=== PATIENT | male | born 1935 | race Caucasian/White ===

== ENCOUNTER 2023-11-21 04:31 | Observation (INO) ==
[2023-11-21 05:14] LABS: ABS Basophils 0.1 10^3/uL (0.0-0.1); ABS Lymphocytes 0.7 10^3/uL (1.0-4.8); ABS Monocytes 1.1 10^3/uL (0.0-1.1); ABS Neutrophils 9.9 10^3/uL (1.5-7.6); ABS Nucleated RBC 0.01 10^3/ul; Eosinophil % 0.2 %; Hematocrit 22.5 % (38-53); Hemoglobin 7.3 g/dL (13.2-16.3); Lymphocyte % 5.9 %; Mean Corpuscular Hemoglobin 33.1 pg (27-33); Mean Corpuscular Hgb Conc 32.6 g/dL (31-36); Mean Corpuscular Volume 101.6 fL (80-97); Mean Platelet Volume 7.3 fL (7.5-11.2); Platelet Count 201 10^3/uL (150-450); Red Blood Count 2.22 10^6/uL (4.06-5.63); Red Cell Distribution Width 17.4 % (12-17); White Blood Count 11.7 10^3/uL (3.6-10.2)
[2023-11-21 05:21] LABS: INR 1.84 (0.85-1.14)
[2023-11-21 06:06] LABS: Albumin 3.1 g/dL (3.2-5.2); Albumin/Globulin Ratio 1.2 (1-3); Calcium 7.9 mg/dL (8.6-10.3); Creatinine, Serum 1.85 mg/dL (0.67-1.17); Globulin 2.5 g/dL (2-4); Total Bilirubin 0.5 mg/dL (0.2-1.0); Total Protein 5.6 g/dL (6.4-8.9); eGFR CKD-EPI 34.8 (>60)
[2023-11-21] MEDS: Prothrombin Complex Conc. DOSE = Units Factor IX (nine) IV SLOW PU ONE (07:02)
[2023-11-21] MEDS ORDERED: Ondansetron 4 mg VIAL 2 MG/ML 2 ml VIAL IV PRN (11:54)
[2023-11-21] MEDS: Ondansetron 4 mg VIAL 2 MG/ML 2 ml VIAL IV ONE (11:55)
[2023-11-21] MEDS ORDERED: Albuterol 2.5mg/3 ml (0.083%) NEB.SOLN INH PRN (12:02)
[2023-11-21 12:42] LABS: Urine Appearance Clear; Urine Bilirubin Negative (Negative); Urine Blood Negative (Negative); Urine Color Yellow; Urine Glucose Negative (Negative); Urine Ketones Negative (Negative); Urine Nitrite Negative (Negative); Urine Protein 1+ (>=30 mg/dL) (Negative); Urine Specific Gravity 1.042 (1.002-1.030); Urine Urobilinogen Negative (Negative)
[2023-11-21 12:46] LABS: Urine Bacteria Absent /HPF (Absent); Urine Red Blood Cell Trace(0-2/hpf) /HPF (0-Trace); Urine Squamous Epithelial Cell Present /HPF (Absent); Urine White Blood Cell Trace(0-5/hpf) /HPF (0-Trace)
[2023-11-21] MEDS: Morphine ORAL CONCENTRATE 5 MG/0.25 ML ORAL.SYRIN SL PRN ×2 (14:29→15:42)
[2023-11-21] MEDS ORDERED: Lorazepam PYXIS KEY PRN (16:01)
[2023-11-21] MEDS: LORazepam 2 mg VIAL 1 ml IV PUSH PRN (16:11)
[2023-11-21] MEDS ORDERED: Morphine 2 MG/ML SYRINGE IV PRN (16:26)
[2023-11-21 16:44] VITALS: BP 127/70
[2023-11-21] MEDS: HYDROmorphone 1 MG/1 ML SYRINGE IV SLOW PU PRN (17:08)
[2023-11-22] MEDS ORDERED: Donepezil HCL 10 mg TAB (NF) PO SCH (09:00)
== END 2023-11-21 17:31 | disposition expired ==
LOC: EDHOLD 04:31 → ED 04:31 → MEDTELE 14:50
PROVIDERS: ADMIT Student in an Organized Health Care Education/Training Program; ATTEND Student in an Organized Health Care Education/Training Program